=== PATIENT | female | born 1935 | race Caucasian/White ===

== ENCOUNTER → 2017-01-17 | Outpatient (CLI) | payer MEDICARE, BC ==
[~2017-01-17] MED LIST: ASPIRIN EC81 MG PO; HYDRODIURIL12.5 MG PO; HYDRODIURIL25 MG PO; LANOXIN (DIGI250 MCG PO; LOPRESSOR25 MG PO; PERCOCET 5-3251 EACH PO; PRINIVIL OR ZES10 MG PO; PROTONIX40 MG PO; TYLENOL EXTRA500 MG PO; ULTRAM50 MG PO; XARELTO10 MG PO; ZOCOR20 MG PO
--- NOTE | ~2017-01-17 | PUL ---
PATIENT'S NAME: LICO KENT [facility] AGE: 81 Y [address] ROOM: [place] [address] LOCATION: [facility] ADMIT DATE: 01/17/2017 Pulmonary DISCHARGE DATE: FAMILY PHYSICIAN: CONTRERAS BAILEY MD ATTENDING PHYSICIAN: Sourav Bell NAME OF PROCEDURE: Pulmonary Function Test DATE OF PROCEDURE: January 17, 2017 TECH: CHELSEY Jewell REASON FOR EXAM: Shortness of breath RESULTS: 1. FVC was 1.75 liters which is 66% of predicted and low, FEV1 was 0.99 liters which is 50% of predicted and low, and FEV1/FVC was 56% and low. The flow volume curve revealed significant airflow limitation. After bronchodilator administration FVC increased to 1.78 liters which is a 2% increase and FEV1 increased to 1 liter which is a 2% increase. FEV1/FVC was 56%. 2. DLCO and adjusted DLCO were eight which is 37% of predicted and low. 3. Total lung capacity was 5.7 liters which is 121% of predicted and high, and residual volume was 4 liters which is 198% of predicted and high. 4. PH was 7.4, pCO2 was 44, PO2 was 75 while on room air. The base excess was 2.8. PHYSICIAN INTERPRETATION: The patient has moderately severe airflow limitation without a significant bronchodilator response. Her diffusion capacity is severely low. There is evidence of hyperinflation and air trapping on the lung volumes. She has no significant metabolic abnormalities and no hypoxia at rest on room air. MD ELMA TODD/mike /[id number] dtt: 01/21/17 1314 , SUSU LOCKWOOD dtd: 01/20/17 1337
[2017-01-17 09:25] LABS: BICARBONATE 27.9 mmol/L (18.0-23.0); PCO2 44 mmHg (35-45); PO2 75 mmHg (80-90)
== END | disposition disaster alternative care site (69) ==
LOC: GRTH 01-14 09:00
PROVIDERS: Internal Medicine Interventional Cardiology
DX: R06.02 Shortness of breath (principal)

== ENCOUNTER → 2017-04-20 | Outpatient (CLI) | payer MEDICARE, BC ==
--- NOTE | ~2017-04-20 | PUL ---
PATIENT'S NAME: LICO KENT [facility] AGE: 82 Y [address] ROOM: [place] [address] LOCATION: [facility] ADMIT DATE: 04/20/2017 Pulmonary DISCHARGE DATE: FAMILY PHYSICIAN: CONTRERAS BAILEY MD ATTENDING PHYSICIAN: SUSU LOCKWOOD NAME OF PROCEDURE: Sleep study PROCEDURE DATE: 04/20/17 TECH: PAMELA Higgins TEST #: [facility] [place]# [id number] TECHNICAL PARAMETERS: The patient was studied using International 10/20 measuring system. While the patient was studied, there was continuous monitoring of EEG (8 leads), EOG (2 leads), EKG (3 leads), submental EMG (3 leads), tibial (4 leads), respiratory inductive plethysmography (RIP) for thoracic and abdominal effort, oral and nasal airflow with a thermocouple and pressure transducer, and oximetry. The automotive exhaust emissions technician also performed visual and auditory observations noting things like body position, patient's status, breath sounds, artifact, snoring level and patient comments. Continuous sound was monitored using a 2-way speaker system and video monitoring was performed using an infrared camera. Review of the entire study was performed epoch by epoch utilizing a single epoch and multiple epoch capability sleep system. MEDICAL HISTORY: The patient is an 82-year-old woman with daytime sleepiness and snoring. SLEEP STAGE SUMMARY: The patient was studied for 483 minutes of which she slept 386 minutes. She fell asleep in 30 minutes and slept for 80% of the night. Sleep architecture revealed a decline in slow wave sleep. RESPIRATORY SUMMARY: Oxygen saturations ranged from 90-94%. This study was done to titrate CPAP which was started at 6 cm and titrated to 8 cm with good control of the respiratory events. EKG SUMMARY: A paced rhythm was noted. LIMB MOVEMENT SUMMARY: Periodic limb movements occurred sporadically. Clinical relevance is unclear. IMPRESSION: Obstructive sleep apnea responsive to CPAP at 8 cm. PLAN: CPAP at 8 cm with monitoring of symptoms. If daytime sleepiness PATIENT'S NAME: LICO KENT [facility] AGE: 82 Y [address] ROOM: [place] [address] LOCATION: [facility] ADMIT DATE: 04/20/2017 Pulmonary DISCHARGE DATE: FAMILY PHYSICIAN: CONTRERAS BAILEY MD ATTENDING PHYSICIAN: SUSU LOCKWOOD persists would consider treating the leg movements. MD NATHANIEL SOLANO/ /[id number] dtt: 04/25/17 0949 , Brent Gil. dtd: 04/22/17 1504
== END | disposition disaster alternative care site (69) ==
LOC: GSLP 20:21
DX: G47.36 Sleep related hypoventilation in conditions classified elsewhere (principal); G47.33 Obstructive sleep apnea (adult) (pediatric)